=== PATIENT | male | born 1980 | race Caucasian/White ===

== ENCOUNTER 2016-10-05 17:24 | Inpatient (IN) | payer SELFPAY ==
[~2016-10-05] VITALS: Ht 182.9 cm; Wt 94.3 kg
[2016-10-05 17:25] VITALS: BP 149/78; PULSE 116; RESP 14; TEMP 98.1; O2SAT 99
[2016-10-05 19:31] VITALS: BP 134/74; PULSE 98; RESP 18; TEMP 98.7; O2SAT 100
[2016-10-05] MEDS ORDERED: SODIUM CHLOR 0.9% 1000 ML INJ 1,000 ML IV SCH (19:35)
[2016-10-05 19:39] VITALS: O2SAT 98
[2016-10-05] MEDS ORDERED: SODIUM CHLORIDE 0.9% FLUSH 5 ML FLUSH IVF PRN (19:45)
[2016-10-05 20:02] LABS: AUTOMATED NEUTROPHIL # 6.8 TH/MM3 (1.8-7.7); BASOPHIL # 0.1 TH/MM3 (0-0.2); BASOPHIL % 0.8 % (0.0-2.0); EOSINOPHIL # 0.1 TH/MM3 (0-0.4); EOSINOPHIL % 0.7 % (0.0-4.0); HEMATOCRIT 27.1 % (39.0-51.0); LYMPH % 11.9 % (9.0-44.0); MEAN CELL VOLUME 98.5 FL (80.0-100.0); MEAN CORPUSCULAR HEMOGLOBIN 34.5 PG (27.0-34.0); MEAN CORPUSCULAR HGB CONC 35.1 % (32.0-36.0); MONO % 8.9 % (0.0-8.0); NEUT % 77.7 % (16.0-70.0); PLATELET COUNT 65 TH/MM3 (150-450); RED BLOOD COUNT 2.75 MIL/MM3 (4.50-5.90); RED CELL DISTRIBUTION WIDTH 13.7 % (11.6-17.2); WHITE BLOOD COUNT 8.7 TH/MM3 (4.0-11.0)
[2016-10-05 20:10] LABS: HEMO FLAGS AUTO DIFF
[2016-10-05 20:12] LABS: APTT (PATIENT) 26.1 SEC (24.3-30.1); INTERNATIONAL NORMALIZED RATIO 1.3 RATIO
[2016-10-05 20:17] LABS: ANION GAP 9 MEQ/L (5-15); AST (GOT) 180 U/L (15-37); BICARBONATE 25.5 MEQ/L (21.0-32.0); BLOOD UREA NITROGEN 15 MG/DL (7-18); CHLORIDE 101 MEQ/L (98-107); GLOMERULAR FILTRATION RATE 126 ML/MIN (>89); POTASSIUM 3.2 MEQ/L (3.5-5.1); SODIUM (NA) 135 MEQ/L (136-145)
[2016-10-05 20:20] LABS: ALKALINE PHOSPHATASE 103 U/L (45-117); ALT (GPT) 86 U/L (12-78); TOTAL BILIRUBIN ADULT 1.6 MG/DL (0.2-1.0)
[2016-10-05] MEDS ORDERED: POTASSIUM CHLORIDE 20 MEQ CONTROLLED RELEASE TAB PO ONE (21:30)
[2016-10-05 21:35] LABS: PLATELET ESTIMATE SMEAR LOW (NORMAL); SCAN/DIFF AUTO DIFF CONFIRMED; TEARDROP RBCS 1+ (NORMAL)
[2016-10-05 21:36] VITALS: BP 132/72; PULSE 98; RESP 18; O2SAT 99
[2016-10-05] MEDS ORDERED: THIAMINE INJ 100 MG in SODIUM CHLORIDE 0.9% INJ 100 ML IV ONE (21:45)
[2016-10-05] MEDS ORDERED: ONDANSETRON HCL 4 MG/2 ML VIAL IVP PRN (21:45)
[2016-10-05] MEDS ORDERED: NALOXONE HCL 0.4 MG/ML AMP IV PRN (21:45)
[2016-10-05] MEDS ORDERED: SODIUM CHLORIDE 0.9% FLUSH 5 ML FLUSH FLUSH PRN (21:45)
[2016-10-05] MEDS ORDERED: LORazepam 2 MG/ML VIAL IV PUSH PRN (21:45)
--- NOTE | 2016-10-05 22:01 | PD ---
HPI Chief Complaint: GI Complaint Time Seen by Provider: 19:26 Travel History International Travel<30 days: No Contact w/Intl Traveler<30days: No Traveled to known affect area: No History of Present Illness HPI Patient is 35 years old. He has had had nausea vomiting and diarrhea for about 5 days. It has been black. Intermittent nausea accompanies his vomiting. He reports about 6 black bowel movements per day. He states he drinks 1.5 pints of alcohol daily however has not done so for the past few days. He also reports poor dietary habits essentially living off of fast food. He smokes one half pack of cigarettes per day. He states he smokes marijuana very occasionally. He denies past medical history past surgical history otherwise. He takes no medication and has no medication allergy. Associated symptoms include decreased appetite overall however he has been tolerating water. He has no history of endoscopy/colonoscopy. No insurance. No PMD. PFSH Past Medical History Medical History: Denies Significant Hx Tetanus Vaccination: Never Vaccinated Influenza Vaccination: No Past Surgical History Surgical History: No Previous Surgery Social History Alcohol Use: Yes (pint and a half ) Tobacco Use: Yes Substance Use: Yes (marijuana ) Allergies-Medications (Allergen,Severity, Reaction): Coded Allergies: No Known Allergies (Unverified , 10/05/16) Reported Meds & Prescriptions Reported Meds & Active Scripts Active No Active Prescriptions or Reported Medications Review of Systems Except as stated in HPI: all other systems reviewed are Neg General / Constitutional: No: Fever Gastrointestinal: Positive: Nausea, Vomiting, Diarrhea, Abdominal Pain, Changes in Bowel Habits, Loss of Appetite Physical Exam Narrative GENERAL: 35-year-old male well-nourished well-developed RECTAL: No hemorrhoid fissure fistula. No mass in the rectal vault. Black guaiac positive stool.. SKIN: Warm and dry. HEAD: Atraumatic. Normocephalic. EYES: Pupils equal and round. No scleral icterus. No injection or drainage. ENT: No nasal bleeding or discharge. Mucous membranes pink and moist. NECK: Trachea midline. No JVD. CARDIOVASCULAR: Regular rate and rhythm. No murmur appreciated. RESPIRATORY: No accessory muscle use. Clear to auscultation. Breath sounds equal bilaterally. GASTROINTESTINAL: Soft. Minimal tenderness in the right upper quadrant. No tenderness at McBurney's point. MUSCULOSKELETAL: No obvious deformities. No clubbing. No cyanosis. No edema. NEUROLOGICAL: Awake and alert. No obvious cranial nerve deficits. Motor grossly within normal limits. Normal speech. PSYCHIATRIC: Appropriate mood and affect; insight and judgment normal. Data Data Last Documented VS Vital Signs Date Time Temp Pulse Resp B/P Pulse Ox O2 Delivery O2 Flow Rate FiO2 10/05/16 21:36 98 18 132/72 99 Room Air 10/05/16 19:31 98.7 Orders Comprehensive Metabolic Panel (10/05/16 19:35) Lipase (10/05/16 19:35) Prothrombin Time / Inr (Pt) (10/05/16 19:35) Act Partial Throm Time (Ptt) (10/05/16 19:35) Alcohol (Ethanol) (10/05/16 19:35) Type And Screen (10/05/16 19:35) Ecg Monitoring (10/05/16 19:35) Iv Access Insert/Monitor (10/05/16 19:35) Oximetry (10/05/16 19:35) Sodium Chlor 0.9% 1000 Ml Inj (Ns 1000 M (10/05/16 19:35) Sodium Chloride 0.9% Flush (Ns Flush) (10/05/16 19:45) Complete Blood Count With Diff (10/05/16 19:35) Potassium Chloride (Kcl) (10/05/16 21:30) Admit To Inpatient (10/05/16 ) Vital Signs (Adult) Q4H (10/05/16 21:42) Activity Oob Ad Luz (10/05/16 21:42) Spanish Interpreter/Translator / Telemetry .CONTINUOUS (10/05/16 21:42) Diet Npo (10/06/16 Breakfast) Sodium Chloride 0.9% Flush (Ns Flush) (10/05/16 21:45) Sodium Chloride 0.9% Flush (Ns Flush) (10/06/16 09:00) Ondansetron Inj (Zofran Inj) (10/05/16 21:45) Basic Metabolic Panel (Bmp) (10/06/16 06:00) Complete Blood Count With Diff (10/06/16 06:00) Case Management Consult (10/05/16 21:42) Naloxone Inj (Narcan Inj) (10/05/16 21:45) Inpatient Certification (10/05/16 ) Pantoprazole Inj (Protonix Inj) (10/05/16 22:45) Pantoprazole Inj (Protonix Inj) (10/05/16 22:45) Admit Order (Ed Use Only) (10/05/16 21:42) Magnesium (Mg) (10/05/16 21:45) Lorazepam Inj (Ativan Inj) (10/05/16 21:45) Consult Psych Counselor Etoh (10/05/16 ) ^ Etoh Withdrawal Precautions (10/05/16 21:44) Chlordiazepoxide (Librium) (10/06/16 09:00) Thiamine (Vit B1) (Vitamin B1) (10/06/16 09:00) Thiamine Inj (Thiamine Inj) (10/05/16 21:45) Consult Gastroenterology (10/05/16 ) Labs Laboratory Tests Test 10/05/16 19:45 White Blood Count 8.7 TH/MM3 Red Blood Count 2.75 MIL/MM3 Hemoglobin 9.5 GM/DL Hematocrit 27.1 % Mean Corpuscular Volume 98.5 FL Mean Corpuscular Hemoglobin 34.5 PG Mean Corpuscular Hemoglobin 35.1 % Concent Red Cell Distribution Width 13.7 % Platelet Count 65 TH/MM3 Mean Platelet Volume 12.2 FL Neutrophils (%) (Auto) 77.7 % Lymphocytes (%) (Auto) 11.9 % Monocytes (%) (Auto) 8.9 % Eosinophils (%) (Auto) 0.7 % Basophils (%) (Auto) 0.8 % Neutrophils # (Auto) 6.8 TH/MM3 Lymphocytes # (Auto) 1.0 TH/MM3 Monocytes # (Auto) 0.8 TH/MM3 Eosinophils # (Auto) 0.1 TH/MM3 Basophils # (Auto) 0.1 TH/MM3 CBC Comment AUTO DIFF Differential Comment AUTO DIFF CONFIRMED Platelet Estimate LOW Tear Drop Cells 1+ Prothrombin Time 14.0 SEC Prothromb Time International 1.3 RATIO Ratio Activated Partial 26.1 SEC Thromboplast Time Sodium Level 135 MEQ/L Potassium Level 3.2 MEQ/L Chloride Level 101 MEQ/L Carbon Dioxide Level 25.5 MEQ/L Anion Gap 9 MEQ/L Blood Urea Nitrogen 15 MG/DL Creatinine 0.71 MG/DL Estimat Glomerular Filtration 126 ML/MIN Rate Random Glucose 93 MG/DL Calcium Level 8.3 MG/DL Total Bilirubin 1.6 MG/DL Aspartate Amino Transf 180 U/L (AST/SGOT) Alanine Aminotransferase 86 U/L (ALT/SGPT) Alkaline Phosphatase 103 U/L Total Protein 6.9 GM/DL Albumin 2.9 GM/DL Lipase 232 U/L Ethyl Alcohol Level LESS THAN 3 MG/DL Blood Type O POSITIVE Antibody Screen NEGATIVE Blood Bank Comment MDM Medical Decision Making Medical Screen Exam Complete: Yes Emergency Medical Condition: Yes Differential Diagnosis UGIB, LGIB, alcoholism, fatty liver disease, alcoholic liver disease Narrative Course CBC & BMP Diagram 10/05/16 19:45 Alcohol undetectable Total bilirubin 1.6 AST 180 ALT 86 Coags: 14.0/1.3/26.1 Alcohol less than 3 Patient has guaiac positive black stool. His hemoglobin is 9.5 and he is 35 years old. He arrives with mild tachycardia at about a rate of 115. He has received a liter of saline and his heart rate now is 80. He has never undergone endoscopy/colonoscopy. Admission for evaluation by gastroenterology considered appropriate. D/w Dr Evangelista. [facility] Point of Care Internal Pos. & Neg. Controls: Passed Fecal Specimen Occult Blood: Positive Diagnosis Primary Impression: Nausea vomiting and diarrhea Additional Impressions: GI bleed Qualified Code: K92.2 - Gastrointestinal hemorrhage, unspecified gastrointestinal hemorrhage type Anemia Qualified Code: D64.89 - Anemia due to other cause, not classified Elevated liver enzymes Hypokalemia Admitting Information Admitting Physician Requests: Observation Scripts No Active Prescriptions or Reported Meds Peewee hSaw MD Oct 05, 2016 22:01
[2016-10-05] MEDS ORDERED: PANTOPRAZOLE INJ 80 MG in SODIUM CHLORIDE 0.9% INJ 35 ML IV ONE (22:45)
[2016-10-05] MEDS: PANTOPRAZOLE INJ 80 MG in SODIUM CHLORIDE 0.9% INJ 100 ML IV SCH (22:45)
[2016-10-06] VITALS (11 sets, daily range): BP systolic 106–142; BP diastolic 58–75; PULSE 67–89; RESP 16–21; TEMP 98.2–98.9; O2SAT 97–100
[2016-10-06 07:17] LABS: AUTOMATED NEUTROPHIL # 4.6 TH/MM3 (1.8-7.7); BASOPHIL # 0.1 TH/MM3 (0-0.2); BASOPHIL % 0.8 % (0.0-2.0); EOSINOPHIL # 0.1 TH/MM3 (0-0.4); EOSINOPHIL % 1.3 % (0.0-4.0); HEMATOCRIT 22.4 % (39.0-51.0); LYMPH % 18.6 % (9.0-44.0); LYMPHOCYTE # 1.2 TH/MM3 (1.0-4.8); MEAN CELL VOLUME 99.6 FL (80.0-100.0); MEAN CORPUSCULAR HEMOGLOBIN 34.4 PG (27.0-34.0); MEAN CORPUSCULAR HGB CONC 34.6 % (32.0-36.0); NEUT % 69.3 % (16.0-70.0); PLATELET COUNT 50 TH/MM3 (150-450); RED BLOOD COUNT 2.25 MIL/MM3 (4.50-5.90); RED CELL DISTRIBUTION WIDTH 13.9 % (11.6-17.2); WHITE BLOOD COUNT 6.6 TH/MM3 (4.0-11.0)
[2016-10-06 07:27] LABS: HEMO FLAGS AUTO DIFF
[2016-10-06 07:43] LABS: MAGNESIUM 2.1 MG/DL (1.5-2.5)
[2016-10-06 07:44] LABS: BICARBONATE 23.9 MEQ/L (21.0-32.0); POTASSIUM 3.6 MEQ/L (3.5-5.1)
[2016-10-06 09:13] LABS: POLYCHROMASIA 2.6 % (0.0-1.9); SCAN/DIFF AUTO DIFF CONFIRMED
[2016-10-06] MEDS ORDERED: DIATRIZOATE MEGLUM/DIATRIZOATE SOD 9 ML CUP PO ONE (09:45)
--- NOTE | 2016-10-06 10:36 | PD.CONS ---
HPI History of Present Illness This is a 35 year old male with out significant past medical history who presents to [facility] [place] for evaluation of nausea vomiting and diarrhea for about 5 days. He reports black tarry stools since Saturday, no bright bleed. He had 3 episodes of emesis on Saturday with the first one being bloody, but no blood after that, and he had another 2 episodes of emesis on Saturday but non after that. last time he had a black stool was last night. He states he drinks 1.5 pints of alcohol daily however, last drink was on Saturday. He smokes one half pack of cigarettes per day. He states he smokes marijuana very occasionally. He also reports poor dietary habits that consist off of fast food. He denies past history of this. He has no history of endoscopy/colonoscopy. He denies abdomen pain or GERD. Hgb today went down to 7.8, it was 9.5 on admission. He was started on Protonix GTT. he currently asking about diet. LFTs elevated, no imaging or previous liver work up done. (Nicole Finney) PFSH Past Medical History None Past Surgical History Negative (Nicole Finney) Coded Allergies: No Known Allergies (Unverified , 10/05/16) Medications Current Medications Medications (Trade) Dose Ordered Sig/Karrie Route Start Time Stop Time Status Last Admin (NS Flush) 2 ml UNSCH PRN FLUSH 10/05/16 21:45 (NS Flush) 2 ml BID FLUSH 10/06/16 09:00 (Zofran Inj) 4 mg Q6H PRN IVP 10/05/16 21:45 Naloxone HCl 0.4 mg 0.4 mg UNSCH PRN IV 10/05/16 21:45 (Protonix Inj/NS Inj) 100 ml @ 10 mls/hr Q10H IV 10/05/16 22:45 10/05/16 22:45 (Ativan Inj) 1 mg Q2H PRN IV PUSH 10/05/16 21:45 (Librium) 25 mg TID PO 10/06/16 09:00 (Vitamin B1) 100 mg DAILY PO 10/06/16 09:00 Family History grand mother and grand father had throat cancer from smoking Social History Alcohol Use: Yes (pint and a half ) Tobacco Use: Yes Substance Use: Yes (marijuana ) (Nicole Finney) Review of Systems Constitutional: DENIES: Fever, Chills Endocrine: DENIES: Polyuria Eyes: DENIES: Double Vision Ears, nose, mouth, throat: DENIES: Hoarseness Respiratory: DENIES: Shortness of breath Cardiovascular: DENIES: Lower Extremity Edema Gastrointestinal: COMPLAINS OF: Black stools, Diarrhea, Nausea, Vomiting, Hematemesis, DENIES: Abdominal pain, Bloody stools, Constipation, Difficulty Swallowing, Odynophagia, Swelling of Abdomen, Heartburn Genitourinary: DENIES: Hematuria Musculoskeletal: DENIES: Neck pain Integumentary: DENIES: Jaundice Hematologic/lymphatic: DENIES: Bruising Immunologic/allergic: DENIES: Eczema Neurologic: DENIES: Abnormal gait Psychiatric: DENIES: Anxiety (Nicole Finney) GI Exam Vitals I&O Vital Signs Date Time Temp Pulse Resp B/P Pulse Ox O2 Delivery O2 Flow Rate FiO2 10/06/16 08:00 98.2 80 18 131/62 100 10/06/16 03:42 98.2 77 21 123/59 99 10/06/16 00:31 98.9 89 18 142/75 99 10/05/16 21:36 98 18 132/72 99 Room Air 10/05/16 19:39 98 Room Air 10/05/16 19:31 98.7 98 18 134/74 100 Room Air 10/05/16 17:25 98.1 116 14 149/78 99 I/O 10/05/16 10/05/16 10/05/16 10/06/16 10/06/16 10/06/16 07:00 15:00 23:00 07:00 15:00 23:00 Intake Total 360 ml Output Total 500 ml Balance -140 ml Intake Oral 360 ml Output Urine Total 500 ml # Bowel Movements 0 Laboratory Test 10/05/16 10/06/16 10/06/16 10/06/16 19:45 06:34 07:57 09:21 White Blood Count 8.7 TH/MM3 6.6 TH/MM3 Red Blood Count 2.75 MIL/MM3 2.25 MIL/MM3 Hemoglobin 9.5 GM/DL 7.8 GM/DL Hematocrit 27.1 % 22.4 % Mean Corpuscular Volume 98.5 FL 99.6 FL Mean Corpuscular Hemoglobin 34.5 PG 34.4 PG Mean Corpuscular Hemoglobin 35.1 % 34.6 % Concent Red Cell Distribution Width 13.7 % 13.9 % Platelet Count 65 TH/MM3 50 TH/MM3 Mean Platelet Volume 12.2 FL 11.8 FL Neutrophils (%) (Auto) 77.7 % 69.3 % Lymphocytes (%) (Auto) 11.9 % 18.6 % Monocytes (%) (Auto) 8.9 % 10.0 % Eosinophils (%) (Auto) 0.7 % 1.3 % Basophils (%) (Auto) 0.8 % 0.8 % Neutrophils # (Auto) 6.8 TH/MM3 4.6 TH/MM3 Lymphocytes # (Auto) 1.0 TH/MM3 1.2 TH/MM3 Monocytes # (Auto) 0.8 TH/MM3 0.7 TH/MM3 Eosinophils # (Auto) 0.1 TH/MM3 0.1 TH/MM3 Basophils # (Auto) 0.1 TH/MM3 0.1 TH/MM3 CBC Comment AUTO DIFF AUTO DIFF Differential Comment AUTO DIFF AUTO DIFF CONFIRMED CONFIRMED Platelet Estimate LOW Tear Drop Cells 1+ Prothrombin Time 14.0 SEC Prothromb Time International 1.3 RATIO Ratio Activated Partial 26.1 SEC Thromboplast Time Sodium Level 135 MEQ/L 137 MEQ/L Potassium Level 3.2 MEQ/L 3.6 MEQ/L Chloride Level 101 MEQ/L 105 MEQ/L Carbon Dioxide Level 25.5 MEQ/L 23.9 MEQ/L Anion Gap 9 MEQ/L 8 MEQ/L Blood Urea Nitrogen 15 MG/DL 12 MG/DL Creatinine 0.71 MG/DL 0.54 MG/DL Estimat Glomerular Filtration 126 ML/MIN 173 ML/MIN Rate Random Glucose 93 MG/DL 85 MG/DL Calcium Level 8.3 MG/DL 7.8 MG/DL Total Bilirubin 1.6 MG/DL Aspartate Amino Transf 180 U/L (AST/SGOT) Alanine Aminotransferase 86 U/L (ALT/SGPT) Alkaline Phosphatase 103 U/L Total Protein 6.9 GM/DL Albumin 2.9 GM/DL Lipase 232 U/L Ethyl Alcohol Level LESS THAN 3 MG/DL Blood Type O POSITIVE O POSITIVE O POSITIVE Antibody Screen NEGATIVE Blood Bank Comment Polychromasia 2.6 % Magnesium Level 2.1 MG/DL Crossmatch Leukocyte-Reduced Red Blood Cells Physical Examination HEENT: normocephalic; atraumatic; no jaundice. Throat is clear. NECK: Neck is supple, no JVD, no lymphadenopathy. CHEST: Chest is clear to auscultation and percussion. CARDIAC: Regular rate and rhythm with no murmur gallop or rubs. ABDOMEN: Soft, nondistended, nontender; no hepatosplenomegaly; bowel sounds are present in all four quadrants. EXTREMITIES: No clubbing, cyanosis, or edema. SKIN: Normal; no rash; no jaundice. DATA ANALYTICS ARCHITECT: No focal deficits; alert and oriented times three. (Nicole Finney) Assessment and Plan Plan - guaiac positive black stool/ nausea, vomiting, one episode of hematemesis, heavy alcohol intake. Possible ulcers, gastritis, varices He reports black tarry stools since Saturday, no bright bleed. He had 3 episodes of emesis on Saturday with the first one being bloody, but no blood after that, and he had another 2 episodes of emesis on Saturday but non after that. last time he had a black stool was last night. He states he drinks 1.5 pints of alcohol daily however, last drink was on Saturday. He smokes one half pack of cigarettes per day. He states he smokes marijuana very occasionally. He also reports poor dietary habits that consist off of fast food. He denies past history of this. He has no history of endoscopy/colonoscopy. He denies abdomen pain or GERD. Hgb today went down to 7.8, it was 9.5 on admission. He was started on Protonix GTT. he currently asking about diet. LFTs elevated, no imaging or previous liver work up done. - Elevated LFTs - consistent with alcoholic pattern AST 180, ALT 86, ALP 103, will order US, hepatitis panel - Alcohol abuse/marijuana use- Cessation highly encouraged Plan: - Full liquids - EGD on Saturday - Cont. Protonix GTT - Monitor hh - Transfuse as needed - Notify GI for active bleed - US - Hepatitis panel - Alcohol cessation - Patient seen and examined by Dr. Javed and myself and this note is written on her behalf (Nicole Finney) Physician Comments seen, examined agree with above cancel us abdomen-await ct results first transfuse 2 units prbc egd plus minus colonoscopy on Saturday unless indicated otherwise pending ct, lab results needs to stop etoh-discussed with him (Apple Javed MD) Nicole Finney Oct 06, 2016 10:36 Apple Javed MD Oct 06, 2016 14:11
[2016-10-06] MEDS: chlordiazePOXIDE 25 MG CAP PO SCH ×3 (11:29→19:09)
[2016-10-06] MEDS: THIAMINE HCL 100 MG TAB PO SCH (11:29)
[2016-10-06] MEDS: PANTOPRAZOLE INJ 80 MG in SODIUM CHLORIDE 0.9% INJ 100 ML IV SCH ×2 (11:37→22:40)
[2016-10-06] MEDS: SODIUM CHLORIDE 0.9% FLUSH 5 ML FLUSH FLUSH SCH ×2 (11:37→20:23)
[2016-10-06] MEDS ORDERED: IOHEXOL 350 MG/ML 10 ML VIAL (for RAD DIAG) IV ONE (14:13)
--- NOTE | 2016-10-06 14:22 | HHI.HP ---
[facility] Service [facility] Primary Care Physician No Primary Care Physician Admission Diagnosis GI Bleed, N/V/D, Transaminitis Diagnoses: Chief Complaint: dark stool, vomiting Travel History International Travel<30 Days: No Contact w/Intl Traveler <30 Da: No Traveled to Known Affected Are: No History of Present Illness Patient is a pleasant 35 year old male with out significant past medical history who [place] [facility] [place] nausea, vomiting and diarrhea for about 5 days. He reports black tarry stools since Saturday, no bright bleed. He had 3 episodes of emesis on Saturday with the first one being bloody, but no blood after that, and he had another 2 episodes of emesis on Saturday but non after that. last time he had a black stool was last night. He states he drinks 1.5 pints of alcohol daily however, last drink was on Saturday. He smokes one half pack of cigarettes per day. He states he smokes marijuana very occasionally. He also reports poor dietary habits that consist off of fast food. He denies past history of this. He has no history of endoscopy/ colonoscopy. He denies abdomen pain or GERD. Hgb today went down to 7.8, it was 9.5 on admission. He was started on Protonix GTT. He is currently asking about diet. LFTs elevated, no imaging or previous liver work up done. Patient denies cp, sob, lightheadedness. No rash on his body. Bi fever or chills. No cough. Doesn't take any meds. Review of Systems 12 system ROS reviewed and negative except as mentioned in HPI Past Family Social History Past Medical History None Past Surgical History Negative Reported Medications Reported Meds & Active Scripts Active No Active Prescriptions or Reported Medications Allergies: Coded Allergies: No Known Allergies (Unverified , 10/05/16) Family History grand mother and grand father had throat cancer from smoking Social History Alcohol use vodka daily pint and a half over the past 2 years more heavily. Stared early and getting progressively heavily drinking over the past 5 years Reports 1/2 PPD daily since 16 ya. Occasional Marijuana use once a month. Physical Exam Vital Signs Vital Signs Date Time Temp Pulse Resp B/P Pulse Ox O2 Delivery O2 Flow Rate FiO2 10/06/16 12:00 98.4 79 18 115/63 100 10/06/16 08:00 98.2 80 18 131/62 100 10/06/16 03:42 98.2 77 21 123/59 99 10/06/16 00:31 98.9 89 18 142/75 99 10/05/16 21:36 98 18 132/72 99 Room Air 10/05/16 19:39 98 Room Air 10/05/16 19:31 98.7 98 18 134/74 100 Room Air 10/05/16 17:25 98.1 116 14 149/78 99 Physical Exam GENERAL: This is a well-nourished, well-developed patient, in no apparent distress. SKIN: No rashes, ecchymoses or lesions. Cool and dry. HEAD: Atraumatic. Normocephalic. No temporal or scalp tenderness. EYES: Pupils equal round and reactive. Extraocular motions intact. No scleral icterus. No injection or drainage. ENT: Nose without bleeding, purulent drainage or septal hematoma. Throat without erythema, tonsillar hypertrophy or exudate. Uvula midline. Airway patent. NECK: Trachea midline. No JVD or lymphadenopathy. Supple, nontender, no meningeal signs. CARDIOVASCULAR: Regular rate and rhythm without murmurs, gallops, or rubs. RESPIRATORY: Clear to auscultation. Breath sounds equal bilaterally. No wheezes , rales, or rhonchi. GASTROINTESTINAL: Abdomen soft, non-tender, nondistended. No hepato-splenomegaly , or palpable masses. No guarding. MUSCULOSKELETAL: Extremities without clubbing, cyanosis, or edema. No joint tenderness, effusion, or edema noted. No calf tenderness. Negative Homans sign bilaterally. NEUROLOGICAL: Awake and alert. Cranial nerves II through XII intact. Motor and sensory grossly within normal limits. Five out of 5 muscle strength in all muscle groups. Normal speech. Laboratory Laboratory Tests Test 10/05/16 10/06/16 10/06/16 10/06/16 19:45 06:34 07:57 09:21 White Blood Count 8.7 6.6 Red Blood Count 2.75 2.25 Hemoglobin 9.5 7.8 Hematocrit 27.1 22.4 Mean Corpuscular Volume 98.5 99.6 Mean Corpuscular Hemoglobin 34.5 34.4 Mean Corpuscular Hemoglobin 35.1 34.6 Concent Red Cell Distribution Width 13.7 13.9 Platelet Count 65 50 Mean Platelet Volume 12.2 11.8 Neutrophils (%) (Auto) 77.7 69.3 Lymphocytes (%) (Auto) 11.9 18.6 Monocytes (%) (Auto) 8.9 10.0 Eosinophils (%) (Auto) 0.7 1.3 Basophils (%) (Auto) 0.8 0.8 Neutrophils # (Auto) 6.8 4.6 Lymphocytes # (Auto) 1.0 1.2 Monocytes # (Auto) 0.8 0.7 Eosinophils # (Auto) 0.1 0.1 Basophils # (Auto) 0.1 0.1 CBC Comment AUTO DIFF AUTO DIFF Differential Comment AUTO DIFF AUTO DIFF CONFIRMED CONFIRMED Platelet Estimate LOW Tear Drop Cells 1+ Prothrombin Time 14.0 Prothromb Time International 1.3 Ratio Activated Partial 26.1 Thromboplast Time Sodium Level 135 137 Potassium Level 3.2 3.6 Chloride Level 101 105 Carbon Dioxide Level 25.5 23.9 Anion Gap 9 8 Blood Urea Nitrogen 15 12 Creatinine 0.71 0.54 Estimat Glomerular Filtration 126 173 Rate Random Glucose 93 85 Calcium Level 8.3 7.8 Total Bilirubin 1.6 Aspartate Amino Transf 180 (AST/SGOT) Alanine Aminotransferase 86 (ALT/SGPT) Alkaline Phosphatase 103 Total Protein 6.9 Albumin 2.9 Lipase 232 Ethyl Alcohol Level LESS THAN 3 Blood Type O POSITIVE O POSITIVE O POSITIVE Antibody Screen NEGATIVE Blood Bank Comment Polychromasia 2.6 Magnesium Level 2.1 Crossmatch Leukocyte-Reduced Red Blood Cells Date/Time Procedure Status Source Growth 10/06/16 12:40 Cryptosporidium Exam Received Stool Stool Pending 10/06/16 12:40 Giardia Antigen (JOSE) Received Stool Stool Pending Result Diagram: 10/06/16 0634 10/06/16 0634 Assessment and Plan Assessment and Plan GI bleeding. -guaiac positive black stool/ nausea, vomiting, one episode of hematemesis, heavy alcohol intake. Possible ulcers, gastritis, varices He reports black tarry stools since Sunday 10/01, no bright bleed. He had 3 episodes of emesis on Saturday with the first one being bloody, but no blood after that, and he had another 2 episodes of emesis on Saturday but non after that. last time he had a black stool was last night. He states he drinks 1.5 pints of alcohol daily however, last drink was on Sunday 10/01. He smokes one half pack of cigarettes per day. He states he smokes marijuana very occasionally. He also reports poor dietary habits that consist off of fast food. He denies past history of this. He has no history of GIB and no prior endoscopy/colonoscopy. Hgb today went down to 7.8, it was 9.5 on admission. He was started on Protonix GTT. He currently asking about diet. LFTs elevated, no imaging or previous liver work up done. Patient was counselled extensively regarding EtOH use, MJ and tobacco use. Seen by GI, full liquid diet. plan for EGD on Sunday 10/08 Transfuse if HGB < 7 or if symptomatic Monitor H/H - Elevated LFTs - consistent with alcoholic pattern AST 180, ALT 86, ALP 103, will order US, hepatitis panel - Alcohol abuse/marijuana use- Counselled extensively. DVT ppx with SCD/TEDs GI ppx with PPI Code Status full code Discussed Condition With patient, nurse Physician Certification 2 Midnight Certification Type: Admission for Inpatient Services Order for Inpatient Services The services are ordered in accordance with Medicare regulations or non- Medicare payer requirements, as applicable. In the case of services not specified as inpatient-only, they are appropriately provided as inpatient services in accordance with the 2-midnight benchmark. Estimated LOS (days): 4 days is the estimated time the patient will need to remain in the hospital, assuming treatment plan goals are met and no additional complications. Post-Hospital Plan: Home Ijeoma Mccarty MD Oct 06, 2016 14:22
--- NOTE | 2016-10-06 14:37 | RADRPT ---
EXAM DATE/TIME: 10/06/2016 14:07 [place] COMPARISON: No previous studies available for comparison. INDICATIONS : Nausea; vomiting, diarrhea. IV CONTRAST: 100 cc Omnipaque 350 (iohexol) IV ORAL CONTRAST: Prescribed oral contrast ingested. RADIATION DOSE: 16.05 CTDIvol (mGy) MEDICAL HISTORY : None SURGICAL HISTORY : None. ENCOUNTER: Initial ACUITY: 1 day PAIN SCALE: 5/10 LOCATION: Bilateral abdomen. TECHNIQUE: Volumetric scanning of the abdomen and pelvis was performed. Using automated exposure control and ad justment of the mA and/or kV according to patient size, radiation dose was kept as low as reasonably achievable to obtain optimal diagnostic quality images. FINDINGS: LOWER LUNGS: The visualized lower lungs are clear. LIVER: 21 cm craniocaudal. Liver is diffusely heterogeneous and nodular. There is a recanalized umbilical ve in. There ascites and a 17 cm craniocaudal spleen. Portal vein is patent. Gallbladder is contracted a nd with presumably reactive wall thickening. There are portosystemic collaterals including GE junctio n region varices. SPLEEN: Enlarged and approximate 17 cm craniocaudal. No focal splenic lesions seen. PANCREAS: Within normal limits. KIDNEYS: Normal in size and shape. There is no mass, stone or hydronephrosis. ADRENAL GLANDS: Within normal limits. VASCULAR: There is no aortic aneurysm. BOWEL/MESENTERY: The stomach, small bowel, and colon demonstrate no acute abnormality. No free air. The appendix is we ll-visualized, normal. ABDOMINAL WALL: Within normal limits. RETROPERITONEUM: There is no lymphadenopathy. BLADDER: No wall thickening or mass. REPRODUCTIVE: Within normal limits. INGUINAL: There is no lymphadenopathy or hernia. MUSCULOSKELETAL: Within normal limits for patient age. CONCLUSION: Enlarged liver with hepatocellular disease and probable cirrhosis. There is evidence of portal hypert ension including portosystemic collaterals, recanalized umbilical vein, splenomegaly and ascites. The liver parenchyma is extremely heterogeneous but I don't see a definite enhancing lesion. Portal vein appears patent. Murphy Mike MD on October 06, 2016 at 14:29 Board Certified Radiologist. This report was verified electronically.
[2016-10-06 16:29] LABS: C. DIFF EPI 027 PRESUMPTIVE NEGATIVE (NEGATIVE); C. DIFF TOXIN PCR NEGATIVE (NEGATIVE)
[2016-10-07 04:24] VITALS: PULSE 88
[2016-10-07 04:33] VITALS: BP 113/56; PULSE 85; RESP 20; TEMP 100; O2SAT 96
[2016-10-07] MEDS: PANTOPRAZOLE INJ 80 MG in SODIUM CHLORIDE 0.9% INJ 100 ML IV SCH ×4 (04:45→18:26)
[2016-10-07 08:00] VITALS: BP 126/61; PULSE 90; RESP 18; TEMP 97.6; O2SAT 98
[2016-10-07] MEDS: SODIUM CHLORIDE 0.9% FLUSH 5 ML FLUSH FLUSH SCH ×2 (08:21→20:23)
[2016-10-07] MEDS: THIAMINE HCL 100 MG TAB PO SCH (08:21)
[2016-10-07] MEDS: chlordiazePOXIDE 25 MG CAP PO SCH ×3 (08:21→18:26)
--- NOTE | 2016-10-07 09:57 | HHI.PR ---
Subjective Remarks Says he had 2 BM and color is getting normal, no blood in it. No abd pain. No n/ v/d/c. Objective Vitals Vital Signs Date Time Temp Pulse Resp B/P Pulse Ox O2 Delivery O2 Flow Rate FiO2 10/07/16 08:00 97.6 90 18 126/61 98 10/07/16 04:33 100.0 85 20 113/56 96 10/07/16 04:24 88 10/06/16 22:38 98.8 78 19 117/59 98 10/06/16 20:35 98.7 89 20 112/59 97 10/06/16 19:20 98.7 83 17 112/58 98 10/06/16 19:05 98.7 77 16 106/60 98 10/06/16 16:00 98.8 84 18 118/67 100 10/06/16 15:20 98.8 84 18 118/67 100 10/06/16 14:55 98.4 79 18 115/63 100 10/06/16 12:00 98.4 79 18 115/63 100 I/O 10/06/16 10/06/16 10/06/16 10/07/16 10/07/16 10/07/16 07:00 15:00 23:00 07:00 15:00 23:00 Intake Total 360 ml 720 ml Output Total 500 ml 700 ml Balance -140 ml 720 ml -700 ml Intake Oral 360 ml 720 ml Output Urine Total 500 ml 700 ml # Voids 5 2 # Bowel Movements 0 1 1 Result Diagram: 10/06/16 0634 10/06/16 0634 Imaging Last Impressions Abdomen/Pelvis CT 10/06/16 0000 Signed Impressions: Service Date/Time: Thursday, October 06, 2016 14:07 - CONCLUSION: Enlarged liver with hepatocellular disease and probable cirrhosis. There is evidence of portal hypertension including portosystemic collaterals, recanalized umbilical vein, splenomegaly and ascites. The liver parenchyma is extremely heterogeneous but I don't see a definite enhancing lesion. Portal vein appears patent. Murphy Mike MD Objective Remarks GENERAL: This is a well-nourished, well-developed patient, in no apparent distress. SKIN: No rashes, ecchymoses or lesions. Cool and dry. HEAD: Atraumatic. Normocephalic. No temporal or scalp tenderness. EYES: Pupils equal round and reactive. Extraocular motions intact. No scleral icterus. No injection or drainage. ENT: Nose without bleeding, purulent drainage or septal hematoma. Throat without erythema, tonsillar hypertrophy or exudate. Uvula midline. Airway patent. NECK: Trachea midline. No JVD or lymphadenopathy. Supple, nontender, no meningeal signs. CARDIOVASCULAR: Regular rate and rhythm without murmurs, gallops, or rubs. RESPIRATORY: Clear to auscultation. Breath sounds equal bilaterally. No wheezes , rales, or rhonchi. GASTROINTESTINAL: Abdomen soft, non-tender, nondistended. No hepato-splenomegaly , or palpable masses. No guarding. MUSCULOSKELETAL: Extremities without clubbing, cyanosis, or edema. No joint tenderness, effusion, or edema noted. No calf tenderness. Negative Homans sign bilaterally. NEUROLOGICAL: Awake and alert. Cranial nerves II through XII intact. Motor and sensory grossly within normal limits. Five out of 5 muscle strength in all muscle groups. Normal speech. A/P Assessment and Plan GI bleeding. -guaiac positive black stool/ nausea, vomiting, one episode of hematemesis, heavy alcohol intake. Possible ulcers, gastritis, varices He reports black tarry stools since Sunday 10/01, no bright bleed. He had 3 episodes of emesis on Saturday with the first one being bloody, but no blood after that, and he had another 2 episodes of emesis on Saturday but non after that. last time he had a black stool was last night. He states he drinks 1.5 pints of alcohol daily however, last drink was on Sunday 10/01. He smokes one half pack of cigarettes per day. He states he smokes marijuana very occasionally. He also reports poor dietary habits that consist off of fast food. He denies past history of this. He has no history of GIB and no prior endoscopy/colonoscopy. Hgb today went down to 7.8, it was 9.5 on admission. He was started on Protonix GTT. He currently asking about diet. LFTs elevated, no imaging or previous liver work up done. Patient was counselled extensively regarding EtOH use, MJ and tobacco use. Seen by GI, full liquid diet. Plan for EGD on Sunday 10/08 Transfuse if HGB < 7 or if symptomatic Monitor H/H - Elevated LFTs - consistent with alcoholic pattern AST 180, ALT 86, ALP 103, will order US, hepatitis panel - Alcohol abuse/marijuana use- Counselled extensively. DVT ppx with SCD/TEDs GI ppx with PPI Code Status full code Discussed Condition With patient, nurse Ijeoma Mccarty MD Oct 07, 2016 09:57
[2016-10-07 12:00] VITALS: BP 107/58; PULSE 85; RESP 18; TEMP 99.6; O2SAT 95
[2016-10-07 12:55] LABS: AUTOMATED NEUTROPHIL # 5.4 TH/MM3 (1.8-7.7); BASOPHIL # 0.1 TH/MM3 (0-0.2); BASOPHIL % 0.8 % (0.0-2.0); EOSINOPHIL # 0.1 TH/MM3 (0-0.4); EOSINOPHIL % 0.8 % (0.0-4.0); HEMATOCRIT 27.6 % (39.0-51.0); LYMPH % 13.4 % (9.0-44.0); MEAN CELL VOLUME 96.4 FL (80.0-100.0); MEAN CORPUSCULAR HEMOGLOBIN 34.1 PG (27.0-34.0); MEAN CORPUSCULAR HGB CONC 35.4 % (32.0-36.0); MONO % 12.7 % (0.0-8.0); NEUT % 72.3 % (16.0-70.0); PLATELET COUNT 57 TH/MM3 (150-450); RED BLOOD COUNT 2.86 MIL/MM3 (4.50-5.90); RED CELL DISTRIBUTION WIDTH 15.5 % (11.6-17.2); WHITE BLOOD COUNT 7.5 TH/MM3 (4.0-11.0)
[2016-10-07 13:02] LABS: HEMO FLAGS AUTO DIFF
[2016-10-07 13:11] LABS: BICARBONATE 25.7 MEQ/L (21.0-32.0); POTASSIUM 3.2 MEQ/L (3.5-5.1)
[2016-10-07 13:29] LABS: BANDS 15 % (0-6); BASOPHILS 1 % (0-2); EOSINOPHILS 2 % (0-4); NEUTROPHIL # MANUAL DIFF 5.7 TH/MM3 (1.8-7.7); PLATELET ESTIMATE SMEAR LOW (NORMAL); PLATELET MORPHOLOGY NORMAL (NORMAL); POLYS (SEG NEUTROPHILS) 61 % (16-70); SCAN/DIFF FINAL DIFF MANUAL; WBC DIFF SAMPLE 100
[2016-10-07] MEDS ORDERED: MAGNESIUM CITRATE SOLN 300 ML BTL PO ONE ×2 (15:00→20:00)
--- NOTE | 2016-10-07 15:08 | HHI.GIFU ---
Subjective Remarks Resting in bed. States he had a normal colored bowel movement this am. No n/v , no abdominal pain. (Dot Moore) Objective Vitals I&O Vital Signs Date Time Temp Pulse Resp B/P Pulse Ox O2 Delivery O2 Flow Rate FiO2 10/07/16 12:00 99.6 85 18 107/58 95 10/07/16 08:00 97.6 90 18 126/61 98 10/07/16 04:33 100.0 85 20 113/56 96 10/07/16 04:24 88 10/06/16 22:38 98.8 78 19 117/59 98 10/06/16 20:35 98.7 89 20 112/59 97 10/06/16 19:20 98.7 83 17 112/58 98 10/06/16 19:05 98.7 77 16 106/60 98 10/06/16 16:00 98.8 84 18 118/67 100 10/06/16 15:20 98.8 84 18 118/67 100 I/O 10/06/16 10/06/16 10/06/16 10/07/16 10/07/16 10/07/16 07:00 15:00 23:00 07:00 15:00 23:00 Intake Total 360 ml 720 ml Output Total 500 ml 700 ml Balance -140 ml 720 ml -700 ml Intake Oral 360 ml 720 ml Output Urine Total 500 ml 700 ml # Voids 5 2 # Bowel Movements 0 1 1 Laboratory Laboratory Tests Test 10/07/16 12:32 White Blood Count 7.5 Red Blood Count 2.86 Hemoglobin 9.8 Hematocrit 27.6 Mean Corpuscular Volume 96.4 Mean Corpuscular Hemoglobin 34.1 Mean Corpuscular Hemoglobin 35.4 Concent Red Cell Distribution Width 15.5 Platelet Count 57 Mean Platelet Volume 12.4 Neutrophils (%) (Auto) 72.3 Lymphocytes (%) (Auto) 13.4 Monocytes (%) (Auto) 12.7 Eosinophils (%) (Auto) 0.8 Basophils (%) (Auto) 0.8 Neutrophils # (Auto) 5.4 Lymphocytes # (Auto) 1.0 Monocytes # (Auto) 1.0 Eosinophils # (Auto) 0.1 Basophils # (Auto) 0.1 CBC Comment AUTO DIFF Differential Total Cells 100 Counted Neutrophils % (Manual) 61 Band Neutrophils % 15 Lymphocytes % 12 Monocytes % 9 Eosinophils % 2 Basophils % 1 Neutrophils # (Manual) 5.7 Differential Comment FINAL DIFF MANUAL Platelet Estimate LOW Platelet Morphology Comment NORMAL Red Cell Morphology Comment Sodium Level 136 Potassium Level 3.2 Chloride Level 101 Carbon Dioxide Level 25.7 Anion Gap 9 Blood Urea Nitrogen 6 Creatinine 0.72 Estimat Glomerular Filtration 124 Rate Random Glucose 94 Calcium Level 7.8 Date/Time Procedure Status Source Growth 10/06/16 12:40 Cryptosporidium Exam Received Stool Stool Pending 10/06/16 12:40 Giardia Antigen (JOSE) Received Stool Stool Pending Imaging Last Impressions Abdomen/Pelvis CT 10/06/16 0000 Signed Impressions: Service Date/Time: Saturday, October 06, 2016 14:07 - CONCLUSION: Enlarged liver with hepatocellular disease and probable cirrhosis. There is evidence of portal hypertension including portosystemic collaterals, recanalized umbilical vein, splenomegaly and ascites. The liver parenchyma is extremely heterogeneous but I don't see a definite enhancing lesion. Portal vein appears patent. Murphy Mike MD Physical Exam HEENT: Normocephalic; atraumatic; no jaundice. CHEST: CTA CARDIAC: RRR ABDOMEN: Soft, nondistended, nontender; no hepatosplenomegaly; bowel sounds are present in all four quadrants. EXTREMITIES: No clubbing, cyanosis, or edema. SKIN: Normal; no rash; no jaundice. 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 (Dot Moore [facility]) Assessment and Plan Plan ASSESSMENT: - Melena, guaiac positive stool/ nausea, vomiting, one episode of hematemesis, heavy alcohol intake. Pt with heavy ETOH use, with 1.5 pints of Vodka daily. He reports that he has not had any further n/v and that he had a normal colored stool this am. No ibuprofen. S/P 2 units of PRBC. .04/14.6. Protonix Gtt. - Anemia, acute blood loss. S/P 2 units PRBC. .04/14.6. - Elevated LFT. Abdomen/Pelvis CT (10/06/16)----> Enlarged liver with hepatocellular disease and probable cirrhosis. There is evidence of portal hypertension including portosystemic collaterals, recanalized umbilical vein, splenomegaly and ascites. The liver parenchyma is extremely heterogeneous but I don't see a definite enhancing lesion. Portal vein appears patent. Hepatitis profile pending. - Alcohol abuse/marijuana use- Cessation highly encouraged Plan: - Plan for egd in am - Obtain consents - NPO after MN - Protonix Gtt - Monitor HH - Transfuse as needed - Await Hepatitis panel - Alcohol cessation - Supportie care - Further recommendations to follow based on results of above - Patient seen and examined by Dr. Javed and myself and this note is written on her behalf (Dot Moore) Physician Comments agree with above we will schedule egd/colonoscopy in am-preparation ordered (Apple Javed MD) Dot Moore Oct 07, 2016 15:08 Apple Javed MD Oct 07, 2016 15:20
[2016-10-07 16:00] VITALS: BP 135/61; PULSE 84; RESP 18; TEMP 99.4; O2SAT 98
[2016-10-07 19:05] VITALS: BP 121/57; PULSE 83; RESP 16; TEMP 99.6; O2SAT 96
[2016-10-08] VITALS (7 sets, daily range): BP systolic 104–118; BP diastolic 56–63; PULSE 76–95; RESP 16–21; TEMP 97.3–100.6; O2SAT 95–98
[2016-10-08] MEDS: PANTOPRAZOLE INJ 80 MG in SODIUM CHLORIDE 0.9% INJ 100 ML IV SCH ×3 (03:48→22:37)
[2016-10-08] MEDS: SODIUM CHLORID 0.9% 500 ML IV SCH ×2 (04:46→21:40)
[2016-10-08] MEDS: LACTATED RINGER'S 1000 ML IV SCH (04:46)
[2016-10-08] MEDS ORDERED: METOPROLOL TARTRATE 25 MG TAB PO PRN (05:00)
[2016-10-08] MEDS ORDERED: INSULIN HUMAN REGULAR 1,000 UNITS/10 ML VIAL SQ PRN (05:00)
[2016-10-08 07:13] LABS: AUTOMATED NEUTROPHIL # 5.6 TH/MM3 (1.8-7.7); BASOPHIL # 0.1 TH/MM3 (0-0.2); BASOPHIL % 0.8 % (0.0-2.0); EOSINOPHIL # 0.1 TH/MM3 (0-0.4); EOSINOPHIL % 0.9 % (0.0-4.0); HEMATOCRIT 28.6 % (39.0-51.0); LYMPH % 14.1 % (9.0-44.0); LYMPHOCYTE # 1.1 TH/MM3 (1.0-4.8); MEAN CELL VOLUME 97.3 FL (80.0-100.0); MEAN CORPUSCULAR HEMOGLOBIN 33.5 PG (27.0-34.0); MEAN CORPUSCULAR HGB CONC 34.5 % (32.0-36.0); MONO % 13.3 % (0.0-8.0); NEUT % 70.9 % (16.0-70.0); PLATELET COUNT 58 TH/MM3 (150-450); RED BLOOD COUNT 2.94 MIL/MM3 (4.50-5.90); RED CELL DISTRIBUTION WIDTH 15.8 % (11.6-17.2)
[2016-10-08 07:16] LABS: HEMO FLAGS AUTO DIFF
[2016-10-08 07:44] LABS: ALT (GPT) 62 U/L (12-78); ANION GAP 10 MEQ/L (5-15); AST (GOT) 99 U/L (15-37); BLOOD UREA NITROGEN 7 MG/DL (7-18); CHLORIDE 103 MEQ/L (98-107); GLOMERULAR FILTRATION RATE 140 ML/MIN (>89); POTASSIUM 3.2 MEQ/L (3.5-5.1); SODIUM (NA) 138 MEQ/L (136-145)
[2016-10-08 07:46] LABS: ALKALINE PHOSPHATASE 110 U/L (45-117); TOTAL BILIRUBIN ADULT 1.9 MG/DL (0.2-1.0)
[2016-10-08 08:44] LABS: PLATELET ESTIMATE SMEAR LOW (NORMAL); PLATELET MORPHOLOGY NORMAL (NORMAL); POLYCHROMASIA 2.7 % (0.0-1.9)
[2016-10-08 08:45] LABS: SCAN/DIFF AUTO DIFF CONFIRMED
[2016-10-08] MEDS: chlordiazePOXIDE 25 MG CAP PO SCH ×3 (08:55→18:04)
[2016-10-08] MEDS: THIAMINE HCL 100 MG TAB PO SCH (08:55)
[2016-10-08] MEDS: SODIUM CHLORIDE 0.9% FLUSH 5 ML FLUSH FLUSH SCH ×2 (08:56→21:00)
--- NOTE | 2016-10-08 09:54 | HHI.PR ---
Subjective Remarks Went for EGD. No bleeding. No pain. No sob, cp, n/v/d/c. Had normal color BM. No active bleeding. Objective Vitals Vital Signs Date Time Temp Pulse Resp B/P Pulse Ox O2 Delivery O2 Flow Rate FiO2 10/08/16 08:00 99.8 94 16 110/57 95 10/08/16 04:00 100.2 95 16 118/56 95 10/08/16 00:45 100.4 85 16 116/60 98 10/07/16 19:05 99.6 83 16 121/57 96 10/07/16 16:00 99.4 84 18 135/61 98 10/07/16 12:00 99.6 85 18 107/58 95 I/O 10/07/16 10/07/16 10/07/16 10/08/16 10/08/16 10/08/16 07:00 15:00 23:00 07:00 15:00 23:00 Intake Total 960 ml 480 ml 0 ml Output Total 700 ml Balance -700 ml 960 ml 480 ml 0 ml Intake Oral 960 ml 480 ml 0 ml Output Urine Total 700 ml # Voids 5 3 3 # Bowel Movements 1 1 0 1 Result Diagram: 10/08/16 0632 10/08/16 0632 Imaging Last Impressions Abdomen/Pelvis CT 10/06/16 0000 Signed Impressions: Service Date/Time: Thursday, October 06, 2016 14:07 - CONCLUSION: Enlarged liver with hepatocellular disease and probable cirrhosis. There is evidence of portal hypertension including portosystemic collaterals, recanalized umbilical vein, splenomegaly and ascites. The liver parenchyma is extremely heterogeneous but I don't see a definite enhancing lesion. Portal vein appears patent. Murphy Mike MD Objective Remarks GENERAL: This is a well-nourished, well-developed patient, in no apparent distress. SKIN: No rashes, ecchymoses or lesions. Cool and dry. HEAD: Atraumatic. Normocephalic. No temporal or scalp tenderness. EYES: Pupils equal round and reactive. Extraocular motions intact. No scleral icterus. No injection or drainage. ENT: Nose without bleeding, purulent drainage or septal hematoma. Throat without erythema, tonsillar hypertrophy or exudate. Uvula midline. Airway patent. NECK: Trachea midline. No JVD or lymphadenopathy. Supple, nontender, no meningeal signs. CARDIOVASCULAR: Regular rate and rhythm without murmurs, gallops, or rubs. RESPIRATORY: Clear to auscultation. Breath sounds equal bilaterally. No wheezes , rales, or rhonchi. GASTROINTESTINAL: Abdomen soft, non-tender, nondistended. No hepato-splenomegaly , or palpable masses. No guarding. MUSCULOSKELETAL: Extremities without clubbing, cyanosis, or edema. No joint tenderness, effusion, or edema noted. No calf tenderness. Negative Homans sign bilaterally. NEUROLOGICAL: Awake and alert. Cranial nerves II through XII intact. Motor and sensory grossly within normal limits. Five out of 5 muscle strength in all muscle groups. Normal speech. A/P Assessment and Plan GI bleeding. -guaiac positive black stool/ nausea, vomiting, one episode of hematemesis, heavy alcohol intake. Possible ulcers, gastritis, varices He reports black tarry stools since Sunday 10/01, no bright bleed. He had 3 episodes of emesis on Saturday with the first one being bloody, but no blood after that, and he had another 2 episodes of emesis on Saturday but non after that. last time he had a black stool was last night. He states he drinks 1.5 pints of alcohol daily however, last drink was on Sunday 10/01. He smokes one half pack of cigarettes per day. He states he smokes marijuana very occasionally. He also reports poor dietary habits that consist off of fast food. He denies past history of this. He has no history of GIB and no prior endoscopy/colonoscopy. Hgb today went down to 7.8, it was 9.5 on admission. He was started on Protonix GTT. He currently asking about diet. LFTs elevated, no imaging or previous liver work up done. Patient was counselled extensively regarding EtOH use, MJ and tobacco use. Seen by GI, full liquid diet. S/P EGD 10/08 No active bleed, anemia and low PLT, most likely cirrhosis and ETOH hepatitis. Hep panel pending. EGD 10/08 showed grade 2 esophageal varices not banded because he has sever gastropathy and low PLT and elevated INR, colonoscopy showed large polyp in ascending colon removed by snare and small polyp in the sigmoid ablated with heat. GI following appreciate recommendations. Start BB Transfuse if HGB < 7 or if symptomatic Monitor H/H - Elevated LFTs - consistent with alcoholic pattern AST 180, ALT 86, ALP 103, will order US, hepatitis panel - Alcohol abuse/marijuana use- Counselled extensively. DVT ppx with SCD/TEDs GI ppx with PPI Code Status full code Discussed Condition With patient, nurse Ijeoma Mccarty MD Oct 08, 2016 09:54
[2016-10-08] MEDS ORDERED: PROPOFOL 200 MG/20 ML AMP IV ONE (10:50)
--- NOTE | 2016-10-08 11:14 | HHI.GIFU ---
Subjective Remarks feels ok, no new complains, no sign of bleeding, no sign of DT, HGB stable. Objective Vitals I&O Vital Signs Date Time Temp Pulse Resp B/P Pulse Ox O2 Delivery O2 Flow Rate FiO2 10/08/16 10:00 99.8 94 16 110/57 97 10/08/16 08:00 99.8 94 16 110/57 95 10/08/16 04:00 100.2 95 16 118/56 95 10/08/16 00:45 100.4 85 16 116/60 98 10/07/16 19:05 99.6 83 16 121/57 96 10/07/16 16:00 99.4 84 18 135/61 98 10/07/16 12:00 99.6 85 18 107/58 95 I/O 10/07/16 10/07/16 10/07/16 10/08/16 10/08/16 10/08/16 07:00 15:00 23:00 07:00 15:00 23:00 Intake Total 960 ml 480 ml 0 ml Output Total 700 ml Balance -700 ml 960 ml 480 ml 0 ml Intake Oral 960 ml 480 ml 0 ml Output Urine Total 700 ml # Voids 5 3 3 # Bowel Movements 1 1 0 1 Laboratory Laboratory Tests Test 10/07/16 10/08/16 12:32 06:32 White Blood Count 7.5 8.0 Red Blood Count 2.86 2.94 Hemoglobin 9.8 9.9 Hematocrit 27.6 28.6 Mean Corpuscular Volume 96.4 97.3 Mean Corpuscular Hemoglobin 34.1 33.5 Mean Corpuscular Hemoglobin 35.4 34.5 Concent Red Cell Distribution Width 15.5 15.8 Platelet Count 57 58 Mean Platelet Volume 12.4 11.9 Neutrophils (%) (Auto) 72.3 70.9 Lymphocytes (%) (Auto) 13.4 14.1 Monocytes (%) (Auto) 12.7 13.3 Eosinophils (%) (Auto) 0.8 0.9 Basophils (%) (Auto) 0.8 0.8 Neutrophils # (Auto) 5.4 5.6 Lymphocytes # (Auto) 1.0 1.1 Monocytes # (Auto) 1.0 1.1 Eosinophils # (Auto) 0.1 0.1 Basophils # (Auto) 0.1 0.1 CBC Comment AUTO DIFF AUTO DIFF Differential Total Cells 100 Counted Neutrophils % (Manual) 61 Band Neutrophils % 15 Lymphocytes % 12 Monocytes % 9 Eosinophils % 2 Basophils % 1 Neutrophils # (Manual) 5.7 Differential Comment FINAL DIFF AUTO DIFF MANUAL CONFIRMED Platelet Estimate LOW LOW Platelet Morphology Comment NORMAL NORMAL Red Cell Morphology Comment Sodium Level 136 138 Potassium Level 3.2 3.2 Chloride Level 101 103 Carbon Dioxide Level 25.7 25.0 Anion Gap 9 10 Blood Urea Nitrogen 6 7 Creatinine 0.72 0.65 Estimat Glomerular Filtration 124 140 Rate Random Glucose 94 88 Calcium Level 7.8 7.9 Polychromasia 2.7 Total Bilirubin 1.9 Aspartate Amino Transf 99 (AST/SGOT) Alanine Aminotransferase 62 (ALT/SGPT) Alkaline Phosphatase 110 Total Protein 6.4 Albumin 2.7 Date/Time Procedure Status Source Growth 10/06/16 12:40 Cryptosporidium Exam Received Stool Stool Pending 10/06/16 12:40 Giardia Antigen (JOSE) Received Stool Stool Pending Physical Exam HEENT: Normocephalic; atraumatic; no jaundice. CHEST: CTA CARDIAC: RRR ABDOMEN: Soft, nondistended, nontender; no hepatosplenomegaly; bowel sounds are present in all four quadrants. EXTREMITIES: No clubbing, cyanosis, or edema. SKIN: Normal; no rash; no jaundice. 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 Assessment and Plan Plan ASSESSMENT: - Melena, guaiac positive stool/ nausea, vomiting, one episode of hematemesis, heavy alcohol intake. Pt with heavy ETOH use, with 1.5 pints of Vodka daily. He reports that he has not had any further n/v and that he had a normal colored stool this am. No ibuprofen. S/P 2 units of PRBC. .04/14.6. Protonix Gtt. - Anemia, acute blood loss. S/P 2 units PRBC. .04/14.6. - Elevated LFT. Abdomen/Pelvis CT (10/06/16)----> Enlarged liver with hepatocellular disease and probable cirrhosis. There is evidence of portal hypertension including portosystemic collaterals, recanalized umbilical vein, splenomegaly and ascites. The liver parenchyma is extremely heterogeneous but I don't see a definite enhancing lesion. Portal vein appears patent. Hepatitis profile pending. - Alcohol abuse/marijuana use- Cessation highly encouraged 10-08-16 doing ok no active bleed, anemia and low plt, most likely cirrhosis and ETOH hepatitis, patient needs to be of ETOH EGD today showed grade 2 esophageal varices not banded because he has sever gastropathy and low plt and elevated INR, colonoscopy showed large polyp in ascending colon removed by snare and small polyp in the sigmoid ablated with heat Plan: - low salt diet - Protonix Gtt - Monitor HH - Transfuse as needed - Await Hepatitis panel - Alcohol cessation - start Beta Joseph as tolerated - Supportive care - Further recommendations to follow based on results of above Nohemi Mireles MD Oct 08, 2016 11:14
[2016-10-08] MEDS ORDERED: NADOLOL 20 MG TAB PO ONE (12:00)
[2016-10-09 00:22] VITALS: BP 101/57; PULSE 73; RESP 21; TEMP 98.6; O2SAT 99
[2016-10-09 04:23] VITALS: BP 103/52; PULSE 74; RESP 20; TEMP 99.1; O2SAT 98
[2016-10-09] MEDS: LACTATED RINGER'S 1000 ML IV SCH (05:00)
[2016-10-09 06:02] LABS: AUTOMATED NEUTROPHIL # 5.2 TH/MM3 (1.8-7.7); BASOPHIL # 0.1 TH/MM3 (0-0.2); EOSINOPHIL # 0.1 TH/MM3 (0-0.4); HEMATOCRIT 27.9 % (39.0-51.0); LYMPH % 18.3 % (9.0-44.0); LYMPHOCYTE # 1.4 TH/MM3 (1.0-4.8); MEAN CELL VOLUME 97.8 FL (80.0-100.0); MEAN CORPUSCULAR HEMOGLOBIN 33.5 PG (27.0-34.0); MEAN CORPUSCULAR HGB CONC 34.3 % (32.0-36.0); MONO % 12.2 % (0.0-8.0); NEUT % 67.5 % (16.0-70.0); PLATELET COUNT 64 TH/MM3 (150-450); RED BLOOD COUNT 2.85 MIL/MM3 (4.50-5.90); RED CELL DISTRIBUTION WIDTH 15.2 % (11.6-17.2); WHITE BLOOD COUNT 7.7 TH/MM3 (4.0-11.0)
[2016-10-09 06:03] LABS: HEMO FLAGS AUTO DIFF
[2016-10-09 06:33] LABS: INDIRECT BILIRUBIN 0.6 MG/DL (0.0-0.8); TOTAL BILIRUBIN ADULT 1.1 MG/DL (0.2-1.0)
[2016-10-09 07:02] LABS: BANDS 5 % (0-6); BASOPHILS 1 % (0-2); MYELOCYTES 1 % (0-0); NEUTROPHIL # MANUAL DIFF 5.7 TH/MM3 (1.8-7.7); POLYS (SEG NEUTROPHILS) 68 % (16-70); WBC DIFF SAMPLE 100
[2016-10-09 07:03] LABS: POLYCHROMASIA 3.1 % (0.0-1.9)
[2016-10-09 07:05] LABS: PLATELET ESTIMATE SMEAR LOW (NORMAL); PLATELET MORPHOLOGY NORMAL (NORMAL); SCAN/DIFF FINAL DIFF MANUAL
[2016-10-09] MEDS: PANTOPRAZOLE INJ 80 MG in SODIUM CHLORIDE 0.9% INJ 100 ML IV SCH (08:03)
[2016-10-09] MEDS: THIAMINE HCL 100 MG TAB PO SCH (08:03)
[2016-10-09] MEDS: chlordiazePOXIDE 25 MG CAP PO SCH (08:04)
[2016-10-09] MEDS: SODIUM CHLORIDE 0.9% FLUSH 5 ML FLUSH FLUSH SCH (08:04)
[2016-10-09 08:26] VITALS: BP 94/50; PULSE 78; RESP 16; TEMP 99.8; O2SAT 97
[2016-10-09] MEDS ORDERED: PANT40TA3 PO (11:31)
[2016-10-09] MEDS ORDERED: VITA100T2 PO (11:31)
[2016-10-09] MEDS ORDERED: CHLO25CA2 PO (11:31)
--- NOTE | 2016-10-09 11:32 | HHI.DS ---
Discharge Summary Admission Date Oct 05, 2016 at 21:45 Discharge Date: Oct 09, 2016 Admitting Diagnosis GI Bleed, N/V/D, Transaminitis (1) GI bleed ICD Code: K92.2 Diagnosis: Principal (2) Elevated liver enzymes ICD Code: R74.8 Diagnosis: Principal (3) Nausea vomiting and diarrhea ICD Code: R11.2 Diagnosis: Principal (4) Anemia ICD Code: D64.9 Diagnosis: Principal (5) Hypokalemia ICD Code: E87.6 Diagnosis: Principal Procedures EGD/colonoscopy Brief History - From Admission Patient is a pleasant 35 year old male with out significant past medical history who presents to [facility] for evaluation of nausea, vomiting and diarrhea for about 5 days. He reports black tarry stools since Saturday, no bright bleed. He had 3 episodes of emesis on Saturday with the first one being bloody, but no blood after that, and he had another 2 episodes of emesis on Saturday but non after that. last time he had a black stool was last night. He states he drinks 1.5 pints of alcohol daily however, last drink was on Saturday. He smokes one half pack of cigarettes per day. He states he smokes marijuana very occasionally. He also reports poor dietary habits that consist off of fast food. He denies past history of this. He has no history of endoscopy/ colonoscopy. He denies abdomen pain or GERD. Hgb today went down to 7.8, it was 9.5 on admission. He was started on Protonix GTT. He is currently asking about diet. LFTs elevated, no imaging or previous liver work up done. Patient denies cp, sob, lightheadedness. No rash on his body. Bi fever or chills. No cough. Doesn't take any meds. CBC/BMP: 10/09/16 0545 10/08/16 0632 Significant Findings Laboratory Tests Test 10/07/16 10/08/16 10/09/16 10/09/16 12:32 06:32 05:40 05:45 Red Blood Count 2.86 MIL/MM3 2.94 MIL/MM3 2.85 MIL/MM3 (4.50-5.90) (4.50-5.90) (4.50-5.90) Hemoglobin 9.8 GM/DL 9.9 GM/DL 9.6 GM/DL (13.0-17.0) (13.0-17.0) (13.0-17.0) Hematocrit 27.6 % 28.6 % 27.9 % (39.0-51.0) (39.0-51.0) (39.0-51.0) Mean Corpuscular Hemoglobin 34.1 PG (27.0-34.0) Platelet Count 57 TH/MM3 58 TH/MM3 64 TH/MM3 (150-450) (150-450) (150-450) Mean Platelet Volume 12.4 FL 11.9 FL 11.9 FL (7.0-11.0) (7.0-11.0) (7.0-11.0) Neutrophils (%) (Auto) 72.3 % 70.9 % (16.0-70.0) (16.0-70.0) Monocytes (%) (Auto) 12.7 % 13.3 % 12.2 % (0.0-8.0) (0.0-8.0) (0.0-8.0) Monocytes # (Auto) 1.0 TH/MM3 1.1 TH/MM3 (0-0.9) (0-0.9) Band Neutrophils % 15 % (0-6) Monocytes % 9 % (0-8) 15 % (0-8) Platelet Estimate LOW (NORMAL) LOW (NORMAL) LOW (NORMAL) Potassium Level 3.2 MEQ/L 3.2 MEQ/L (3.5-5.1) (3.5-5.1) Blood Urea Nitrogen 6 MG/DL (7-18) Calcium Level 7.8 MG/DL 7.9 MG/DL (8.5-10.1) (8.5-10.1) Polychromasia 2.7 % (0.0-1.9) 3.1 % (0.0-1.9) Total Bilirubin 1.9 MG/DL 1.1 MG/DL (0.2-1.0) (0.2-1.0) Aspartate Amino Transf 99 U/L (15-37) 68 U/L (15-37) (AST/SGOT) Albumin 2.7 GM/DL 2.4 GM/DL (3.4-5.0) (3.4-5.0) Direct Bilirubin 0.5 MG/DL (0.0-0.2) Total Protein 6.2 GM/DL (6.4-8.2) Myelocytes 1 % (0-0) Imaging Last Impressions Abdomen/Pelvis CT 10/06/16 0000 Signed Impressions: Service Date/Time: Thursday, October 06, 2016 14:07 - CONCLUSION: Enlarged liver with hepatocellular disease and probable cirrhosis. There is evidence of portal hypertension including portosystemic collaterals, recanalized umbilical vein, splenomegaly and ascites. The liver parenchyma is extremely heterogeneous but I don't see a definite enhancing lesion. Portal vein appears patent. Murphy Mike MD PE at Discharge GENERAL: This is a well-nourished, well-developed patient, in no apparent distress. SKIN: No rashes, ecchymoses or lesions. Cool and dry. HEAD: Atraumatic. Normocephalic. No temporal or scalp tenderness. EYES: Pupils equal round and reactive. Extraocular motions intact. No scleral icterus. No injection or drainage. ENT: Nose without bleeding, purulent drainage or septal hematoma. Throat without erythema, tonsillar hypertrophy or exudate. Uvula midline. Airway patent. NECK: Trachea midline. No JVD or lymphadenopathy. Supple, nontender, no meningeal signs. CARDIOVASCULAR: Regular rate and rhythm without murmurs, gallops, or rubs. RESPIRATORY: Clear to auscultation. Breath sounds equal bilaterally. No wheezes , rales, or rhonchi. GASTROINTESTINAL: Abdomen soft, non-tender, nondistended. No hepato-splenomegaly , or palpable masses. No guarding. MUSCULOSKELETAL: Extremities without clubbing, cyanosis, or edema. No joint tenderness, effusion, or edema noted. No calf tenderness. Negative Homans sign bilaterally. NEUROLOGICAL: Awake and alert. Cranial nerves II through XII intact. Motor and sensory grossly within normal limits. Five out of 5 muscle strength in all muscle groups. Normal speech. Pt update on day of discharge feel smuch better. no more bleeding BM are normal color now. No n/v/d/c. No chest pain or sob. Hospital Course GI bleeding. -guaiac positive black stool/ nausea, vomiting, one episode of hematemesis, heavy alcohol intake. Possible ulcers, gastritis, varices He reports black tarry stools since Sunday 10/01, no bright bleed. He had 3 episodes of emesis on Saturday with the first one being bloody, but no blood after that, and he had another 2 episodes of emesis on Saturday but non after that. last time he had a black stool was last night. He states he drinks 1.5 pints of alcohol daily however, last drink was on Sunday 10/01. He smokes one half pack of cigarettes per day. He states he smokes marijuana very occasionally. He also reports poor dietary habits that consist off of fast food. He denies past history of this. He has no history of GIB and no prior endoscopy/colonoscopy. Hgb today went down to 7.8, it was 9.5 on admission. He was started on Protonix GTT. He currently asking about diet. LFTs elevated, no imaging or previous liver work up done. Patient was counselled extensively regarding EtOH use, MJ and tobacco use. Seen by GI, full liquid diet. S/P EGD 10/08 No active bleed, anemia and low PLT, most likely cirrhosis and ETOH hepatitis. Hep panel pending. EGD 10/08 showed grade 2 esophageal varices not banded because he has sever gastropathy and low PLT and elevated INR, colonoscopy showed large polyp in ascending colon removed by snare and small polyp in the sigmoid ablated with heat. GI following appreciate recommendations. Start BB Hep panel is negative discussed with the patient Transfuse if HGB < 7 or if symptomatic Monitor H/H - Elevated LFTs - consistent with alcoholic pattern AST 180, ALT 86, ALP 103, will order US, hepatitis panel - Alcohol abuse/marijuana use- Counselled extensively. DVT ppx with SCD/TEDs GI ppx with PPI Code Status full code Discussed Condition With patient, nurse Patient improved. Discharged home in failry stable conditionl To follow up as OP with PCP and consultants. Pt Condition on Discharge: Stable Discharge Disposition: Discharge Home Discharge Time: <= 30 minutes Discharge Instructions Activities you can perform: Regular-No Restrictions Follow up Referrals: Gastroenterology - 2 Weeks PCP Follow-up - 3-5 Days New Medications: Pantoprazole (Pantoprazole) 40 Mg Tab 40 MG PO DAILY Reflux #30 Ref 0 TAB Propranolol (Propranolol) 10 Mg Tab 10 MG PO Q12HR Blood Pressure Management #60 Ref 0 TAB Chlordiazepoxide (Chlordiazepoxide) 25 Mg Cap 25 MG PO TID withdrawals from alcohool #10 CAP Thiamine (Vitamin B-1) 100 Mg Tab 100 MG PO DAILY vit #30 TAB Ijeoma Mccarty MD Oct 09, 2016 11:32
[2016-10-09] MEDS ORDERED: PROP10TA6 PO (11:41)
--- NOTE | 2016-10-09 12:32 | HHI.GIFU ---
Subjective Remarks He is resting in bed. Denies abd pain, n/v, diarrhea. Objective Vitals I&O Vital Signs Date Time Temp Pulse Resp B/P Pulse Ox O2 Delivery O2 Flow Rate FiO2 10/09/16 08:26 99.8 78 16 94/50 97 10/09/16 04:23 99.1 74 20 103/52 98 10/09/16 00:22 98.6 73 21 101/57 99 10/08/16 20:20 100.6 76 21 106/56 96 10/08/16 16:00 99.3 78 18 104/57 98 10/08/16 12:19 97.3 80 16 118/63 98 I/O 10/08/16 10/08/16 10/08/16 10/09/16 10/09/16 10/09/16 07:00 15:00 23:00 07:00 15:00 23:00 Intake Total 0 ml 1460 ml 240 ml 700 ml Balance 0 ml 1460 ml 240 ml 700 ml Intake Oral 0 ml 960 ml 240 ml 700 ml Other 500 ml # Voids 3 2 2 1 # Bowel Movements 1 1 0 0 Laboratory Laboratory Tests Test 10/09/16 10/09/16 05:40 05:45 Total Bilirubin 1.1 Direct Bilirubin 0.5 Indirect Bilirubin 0.6 Aspartate Amino Transf 68 (AST/SGOT) Alanine Aminotransferase 49 (ALT/SGPT) Alkaline Phosphatase 105 Total Protein 6.2 Albumin 2.4 White Blood Count 7.7 Red Blood Count 2.85 Hemoglobin 9.6 Hematocrit 27.9 Mean Corpuscular Volume 97.8 Mean Corpuscular Hemoglobin 33.5 Mean Corpuscular Hemoglobin 34.3 Concent Red Cell Distribution Width 15.2 Platelet Count 64 Mean Platelet Volume 11.9 Neutrophils (%) (Auto) 67.5 Lymphocytes (%) (Auto) 18.3 Monocytes (%) (Auto) 12.2 Eosinophils (%) (Auto) 1.0 Basophils (%) (Auto) 1.0 Neutrophils # (Auto) 5.2 Lymphocytes # (Auto) 1.4 Monocytes # (Auto) 0.9 Eosinophils # (Auto) 0.1 Basophils # (Auto) 0.1 CBC Comment AUTO DIFF Differential Total Cells 100 Counted Neutrophils % (Manual) 68 Band Neutrophils % 5 Lymphocytes % 10 Monocytes % 15 Basophils % 1 Neutrophils # (Manual) 5.7 Myelocytes 1 Differential Comment FINAL DIFF MANUAL Platelet Estimate LOW Platelet Morphology Comment NORMAL Polychromasia 3.1 Date/Time Procedure Status Source Growth 10/06/16 12:40 Cryptosporidium Exam - Final Complete Stool Stool NEGATIVE - NO CRYPTOSPORIDIUM ANTIGEN... 10/06/16 12:40 Giardia Antigen (JOSE) - Final Complete Stool Stool NEGATIVE - NO GIARDIA ANTIGEN DETECTE... Imaging Last Impressions Abdomen/Pelvis CT 10/06/16 0000 Signed Impressions: Service Date/Time: Thursday, October 06, 2016 14:07 - CONCLUSION: Enlarged liver with hepatocellular disease and probable cirrhosis. There is evidence of portal hypertension including portosystemic collaterals, recanalized umbilical vein, splenomegaly and ascites. The liver parenchyma is extremely heterogeneous but I don't see a definite enhancing lesion. Portal vein appears patent. Murphy Mike MD Physical Exam HEENT: Normocephalic; atraumatic; no jaundice. CHEST: CTA CARDIAC: RRR ABDOMEN: Soft, nondistended, nontender; no hepatosplenomegaly; bowel sounds are present in all four quadrants. EXTREMITIES: No clubbing, cyanosis, or edema. SKIN: Normal; no rash; no jaundice. [employer]: No focal deficits; alert and oriented times three. Assessment and Plan Plan ASSESSMENT: - Melena, guaiac positive stool/ nausea, vomiting, one episode of hematemesis, heavy alcohol intake. Pt with heavy ETOH use, with 1.5 pints of Vodka daily. No ibuprofen. S/P 2 units of PRBC. 9.6/27.9. Protonix Gtt. - Anemia, acute blood loss. S/P 2 units PRBC. 9.6/27.9. - Elevated LFT. Abdomen/Pelvis CT (10/06/16)----> Enlarged liver with hepatocellular disease and probable cirrhosis. There is evidence of portal hypertension including portosystemic collaterals, recanalized umbilical vein, splenomegaly and ascites. The liver parenchyma is extremely heterogeneous but I don't see a definite enhancing lesion. Portal vein appears patent. Neg hepatitis panel. - Alcohol abuse/marijuana use- Cessation highly encouraged, pt verbalized understanding. EGD 10/08/16 showed grade 2 esophageal varices not banded because he has severe gastropathy and low plt and elevated INR, colonoscopy showed large polyp in ascending colon removed by snare and small polyp in the sigmoid ablated with heat Plan: - okay to d/c from GI standpoint - low salt diet - await biopsies - Monitor HH - Transfuse as needed - complete Alcohol cessation (pt verbalized understanding) - cannot start Beta Joseph due to hypotension, will reassess at f/u appt - Supportive care - Further recommendations to follow based on results of above Dot Moore Oct 09, 2016 12:32
== END 2016-10-09 13:11 | disposition home or self-care (01) | DRG 378 ==
LOC: NEPE 17:24 → OBSVTOIN 21:45 → NEDA 21:45 → N06B 10-06 00:19
PROVIDERS: ADMIT Hospitalist; ATTEND Hospitalist
PROC: 30233N1 Transfusion of Nonautologous Red Blood Cells into Peripheral Vein, Percutaneous Approach (ICD-10-PCS; 2016-10-06)
PROC: 0DJ08ZZ Inspection of Upper Intestinal Tract, Via Natural or Artificial Opening Endoscopic (ICD-10-PCS; 2016-10-08)
PROC: 0DBN8ZZ Excision of Sigmoid Colon, Via Natural or Artificial Opening Endoscopic (ICD-10-PCS; principal; 2016-10-08 10:40)
PROC: 0DBK8ZX Excision of Ascending Colon, Via Natural or Artificial Opening Endoscopic, Diagnostic (ICD-10-PCS; 2016-10-08 10:40)
DX: K92.2 Gastrointestinal hemorrhage, unspecified (principal); D62 Acute posthemorrhagic anemia; K76.6 Portal hypertension; K74.60 Unspecified cirrhosis of liver; D12.5 Benign neoplasm of sigmoid colon; K64.8 Other hemorrhoids; R11.2 Nausea with vomiting, unspecified; R19.7 Diarrhea, unspecified; F17.210 Nicotine dependence, cigarettes, uncomplicated; F12.90 Cannabis use, unspecified, uncomplicated; R00.0 Tachycardia, unspecified; E87.6 Hypokalemia; F10.10 Alcohol abuse, uncomplicated; K70.11 Alcoholic hepatitis with ascites; K31.9 Disease of stomach and duodenum, unspecified; I85.00 Esophageal varices without bleeding; R74.8 Abnormal levels of other serum enzymes; Z80.2 Family history of malignant neoplasm of other respiratory and intrathoracic organs
CPT/HCPCS: 36430; 74177; 80048; 80053; 80074; 80076; 80320; 83690; 83735; 85007; 85025; 85027; 85610; 85730; 86850; 86900; 86901; 86920; 87328; 87329; 87493; 88305; 96360; C9113; J3411; J7030; J7120; P9016; Q9963; Q9967